=== PATIENT | male | born 1955 ===

== ENCOUNTER 2020-09-26 10:24 | Emergency (ER) | payer OTHER ==
[~2020-09-26] VITALS: Ht 160 cm; Wt 65.8 kg
[2020-09-26] MEDS ORDERED: PYRIDIUM100 MG (10:53)
[2020-09-26] MEDS ORDERED: TAMS0.4C (10:53)
[2020-09-26] MEDS ORDERED: CELEBREX100 MG PO (17:07)
[2020-09-26] MEDS ORDERED: PYRIDIUM DS200 MG PO (17:07)
[2020-09-26] MEDS ORDERED: CEFADROXIL500 MG PO (17:07)
[2020-09-26] MEDS ORDERED: TAMS0.4C PO (17:07)
== END 2020-09-26 18:36 | disposition home or self-care (01) ==
LOC: ER 10:24
DX: N21.0 Calculus in bladder (principal); N39.0 Urinary tract infection, site not specified

== ENCOUNTER 2021-03-27 09:30 | Emergency (ER) | payer OTHER ==
[~2021-03-27] VITALS: Ht 165.1 cm; Wt 65.8 kg
[~2021-03-27 09:30] MED LIST: CEFADROXIL500 MG PO; CELEBREX100 MG PO; PYRIDIUM DS200 MG PO; PYRIDIUM100 MG; TAMS0.4C; TAMS0.4C PO
== END 2021-03-27 14:00 | disposition home or self-care (01) ==
LOC: ER 09:30
DX: N39.0 Urinary tract infection, site not specified (principal); R30.0 Dysuria

== ENCOUNTER 2021-04-04 16:20 | Outpatient (CLI) | payer OTHER | END 2021-04-04 16:29 | disposition home or self-care (01) | LOC: LAB 16:20 | PROVIDERS: ATTEND Urology | DX: R97.20 Elevated prostate specific antigen [PSA] (principal); N21.0 Calculus in bladder ==

== ENCOUNTER 2021-04-28 07:31 | Outpatient (CLI) | payer OTHER | END 2021-04-28 07:39 | disposition home or self-care (01) | LOC: SONOGRAMA 07:31 | PROVIDERS: ATTEND Urology | DX: C61 Malignant neoplasm of prostate (principal); D29.1 Benign neoplasm of prostate; R97.20 Elevated prostate specific antigen [PSA] ==

== ENCOUNTER 2021-05-26 10:01 | Outpatient (CLI) | payer OTHER | END 2021-05-26 10:11 | disposition home or self-care (01) | LOC: TOM 10:01 | PROVIDERS: ATTEND Urology | DX: K57.90 Diverticulosis of intestine, part unspecified, without perforation or abscess without bleeding (principal); R10.84 Generalized abdominal pain; C61 Malignant neoplasm of prostate ==

== ENCOUNTER 2021-06-01 09:00 | Outpatient (CLI) | payer OTHER | END 2021-06-01 09:02 | disposition home or self-care (01) | LOC: NUCLEAR 09:00 | PROVIDERS: ATTEND Urology | DX: C61 Malignant neoplasm of prostate (principal) | CPT/HCPCS: 78803; A9503 ==